=== PATIENT | male | born 1990 | race African-American/Black ===

== ENCOUNTER 2022-09-01 09:13 | Emergency (ER) | payer MEDICAID ==
[~2022-09-01] VITALS: Ht 177.8 cm; Wt 88.6 kg
[2022-09-01 09:21] VITALS: BP 131/75
== END 2022-09-01 09:52 | disposition home or self-care (01) ==
LOC: ER 09:13
DX: Z48.00 Encounter for change or removal of nonsurgical wound dressing (principal)
CPT/HCPCS: 99281; Z7610

== ENCOUNTER 2022-09-05 08:55 | Emergency (ER) | payer MEDICAID ==
[~2022-09-05] VITALS: Ht 177.8 cm; Wt 89.0 kg
[2022-09-05 08:59] VITALS: BP 128/75
== END 2022-09-05 11:17 | disposition home or self-care (01) ==
LOC: ER 08:55
DX: S61.411D Laceration without foreign body of right hand, subsequent encounter (principal); X58.XXXD Exposure to other specified factors, subsequent encounter
CPT/HCPCS: 99281

== ENCOUNTER 2023-06-29 19:27 | Emergency (ER) | payer MEDICAID ==
[~2023-06-29] VITALS: Ht 177.8 cm; Wt 88.0 kg
[2023-06-29] MEDS: IBUPROFEN 600MG TABLET PO STA (19:58)
[2023-06-29 20:31] VITALS: BP 102/58; RESP 18; TEMP 98; O2SAT 96
[2023-06-29 20:32] VITALS: PULSE 91
[2023-06-29] MEDS: BACITRACIN ZINC OINT UDPKT TOP ONE (23:15)
[2023-06-29] MEDS ORDERED: IBUP-2029 MT (23:31)
[2023-06-29] MEDS: HYDROCODONE/ACETAMINOPHEN 10/325MG TABLET PO ONE (23:45)
== END 2023-06-30 01:12 | disposition home or self-care (01) ==
LOC: ER 19:27
DX: S92.141A Displaced dome fracture of right talus, initial encounter for closed fracture (principal); W18.39XA Other fall on same level, initial encounter; Y93.89 Activity, other specified; Y92.89 Other specified places as the place of occurrence of the external cause; Y99.8 Other external cause status
CPT/HCPCS: 73610; 99284